=== PATIENT | female | born 1955 | race Caucasian/White ===

== ENCOUNTER 2021-04-17 06:32 | Emergency (ER) | payer OTHER ==
[~2021-04-17] VITALS: Ht 167.6 cm; Wt 77.1 kg
[2021-04-17] MEDS ORDERED: NORVASC5 MG PO (06:40)
[2021-04-17] MEDS ORDERED: LOTREL 5-20 MG1 CAP PO (06:41)
[2021-04-17] MEDS ORDERED: CRESTOR40 MG PO (06:41)
== END 2021-04-17 12:58 | disposition home or self-care (01) ==
LOC: ER 06:32
DX: R10.9 Unspecified abdominal pain (principal); K40.20 Bilateral inguinal hernia, without obstruction or gangrene, not specified as recurrent